=== PATIENT | female | born 1980 | race Caucasian/White ===

== ENCOUNTER → 2018-09-02 14:44 | Outpatient (CLI) | payer OTHER, SELFPAY ==
--- NOTE | 2018-09-02 | DI.US.S_ITS ---
PROCEDURE: US PELVIC LIMITED INDICATIONS: ROUTINE INTRAUTERINE CONTRACEPTIVE DEVICE CHECK TECHNIQUE: Real-time transabdominal scanning was performed of the pelvic organs, with image documentation. COMPARISON: [facility], US, OB COMPLETE 14WKS OR MORE, 05/08/2014, 13:05. FINDINGS: Uterus: Uterus is normal in size at some point a 3.9 x 4.5 cm. Endometrium measures 4 mm in combined thickness. Intrauterine device is noted in appropriate position. There is a 9 x 7 x 10 mm focus of heteroechogenicity within the mid posterior subserosal region. Ovaries: Right ovary measures 34 x 19 x 16 mm. Left ovary measures 31 x 19 x 15 mm. Other: No free pelvic fluid. Limited scanning through the kidneys shows no hydronephrosis. IMPRESSION: 1. Intrauterine device is in appropriate position. 2. Small uterine fibroid. Dictated by: Lyric Castillo M.D. on 09/02/2018 at 20:06 Approved by: Lyric Castillo M.D. on 09/02/2018 at 20:08
== END ==
PROVIDERS: PCP Family Medicine; Visit Provider Naturopath
DX: Z30.431 Encounter for routine checking of intrauterine contraceptive device (principal); D25.2 Subserosal leiomyoma of uterus
CPT/HCPCS: 76857

== ENCOUNTER → 2023-01-01 08:27 | Outpatient (CLI) | payer OTHER, SELFPAY ==
[2023-01-01 09:47] LABS: Hematocrit 37.5 % (36-46); Hemoglobin 12.7 g/dL (12.0-16.0); Mean Corpuscular Hemoglobin 30.6 PG (26-34); Mean Corpuscular Volume 89.9 fL (80-100); Platelet Count 202 X10^3/uL (150-400); Red Blood Cell Count 4.17 X10^6/uL (4.0-5.2); Red Cell Distribution Width 12.4 % (11.6-14.8); White Blood Cell Count 4.5 X10^3/uL (4.5-11.0)
[2023-01-01 10:13] LABS: Alanine Aminotransferase 22 IU/L (<35); Albumin 4.2 g/dL (3.5-5.0); Albumin Globulin Ratio 1.3 (1.0-2.8); Alkaline Phosphatase 49 U/L (38-126); Aspartate Aminotransferase 23 IU/L (14-36); BUN Creatinine Ratio 19.3 (6-22); Bilirubin Total 0.5 mg/dL (0.2-1.3); Blood Urea Nitrogen 17 mg/dL (7-17); Carbon Dioxide 26 mmol/L (22-32); Chloride 104 mmol/L (98-107); Cholesterol 178 mg/dL (140-199); Estimated Glomerular Filt Rate > 60 mL/min (>60); Globulin 3.2 g/dL (1.7-4.1); Glucose 89 mg/dL (70-100); HDL Cholesterol 56 mg/dL (40-60); HEMOLYSIS < 15 (0-50); LDL Cholesterol Calculated 108 mg/dL (<100); Potassium 4.8 mmol/L (3.4-5.1); Sodium 138 mmol/L (137-145); Total Protein 7.4 g/dL (6.3-8.2); Triglycerides 70 mg/dL (35-150)
[2023-01-01 10:40] LABS: Thyroid Stimulating Hormone 0.596 uIU/mL (0.47-4.68)
[2023-01-03 07:40] LABS: Insulin Level Total 8.1 uIU/mL (2.6-24.9)
== END ==
PROVIDERS: Referring Provider Naturopath; Visit Provider Naturopath
DX: R63.5 Abnormal weight gain (principal); Z13.220 Encounter for screening for lipoid disorders; R53.83 Other fatigue; Z13.1 Encounter for screening for diabetes mellitus
CPT/HCPCS: 36415; 80053; 80061; 83525; 84443; 85027

== ENCOUNTER → 2024-09-15 16:13 | Outpatient (CLI) | payer OTHER, SELFPAY ==
--- NOTE | 2024-09-15 16:14 | DI.MG.S_ITS ---
MM screening mammo BI: 09/15/2024. BI-RADS: 0 CLINICAL: 43-year old female for bilateral screening mammogram. Tyrer-Cuzick lifetime risk of 10.5%. No personal or first-degree family history of breast cancer. PRIOR EXAMS No prior examinations available. MAMMOGRAPHY TECHNIQUE: 2D and 3D (tomosynthesis) digital mammographic views obtained, with additional images as needed for full coverage. Current study was also evaluated with a Computer Aided Detection (CAD) system. DENSITY B. There are scattered areas of fibroglandular density. MAMMOGRAPHY FINDINGS Right: Upper Outer at 10:30, Middle depth: There is a focal asymmetry present. Additional imaging evaluation needed. Right: Central, Posterior depth: There are multiple focal asymmetries present. Additional imaging evaluation needed. Right: Lower Inner at 4:00, Posterior depth: Additional imaging evaluation needed. Left: No suspicious mass, asymmetry, microcalcification, or other abnormality seen. IMPRESSION: Right (Asymmetry): Upper Outer at 10:30, Middle depth * Incomplete - Needs additional imaging evaluation. Right (Asymmetry): Central, Posterior depth * Incomplete - Needs additional imaging evaluation. Right: Lower Inner at 4:00, Posterior depth * Incomplete - Needs additional imaging evaluation. Left * No evidence of malignancy. RECOMMENDATIONS Right * Further evaluation with diagnostic mammography and diagnostic ultrasound. OVERALL ASSESSMENT CATEGORY BI-RADS-0: Incomplete - Need Additional Imaging Evaluation. ELECTRONICALLY SIGNED: Regino Nguyen M.D. on 09/16/2024 at 08:16:22 AM PT Interpreting Station ID: [id number]
== END ==
PROVIDERS: PCP Naturopath; Referring Provider Naturopath; Visit Provider Naturopath
DX: Z12.31 Encounter for screening mammogram for malignant neoplasm of breast (principal)
CPT/HCPCS: 77063; 77067

== ENCOUNTER → 2024-12-29 09:35 | Outpatient (CLI) | payer OTHER, SELFPAY ==
--- NOTE | 2024-12-29 09:36 | DI.US.S_ITS ---
MM diagnostic mammo unilat RT, US breast RT limited: 12/29/2024 BI-RADS: 2 CLINICAL: 44-year old female for right diagnostic mammogram and right diagnostic breast ultrasound. Tyrer-Cuzick lifetime risk of 10.5%. No personal or first-degree family history of breast cancer. PRIOR EXAMS Mammogram(s): 09/15/2024. MAMMOGRAPHY TECHNIQUE: 2D and 3D (tomosynthesis) digital mammographic views obtained, with additional images as needed for full coverage. Current study was also evaluated with a Computer Aided Detection (CAD) system. ULTRASOUND TECHNIQUE TARGETED Right Breast Ultrasound: Real-time ultrasound exam was performed focused to area of clinical and/or imaging concern. Real-time allen scale and color doppler imaging of the area of clinical interest was performed with image documentation. DENSITY Right: B. There are scattered areas of fibroglandular density. MAMMOGRAPHY FINDINGS Right: Upper Outer at 10:30: There is an asymmetry seen only on one view that has decreased in size. Right: Central: Resembles a lymph node. There is a focal asymmetry present. Right: Lower Inner at 4:00, Posterior depth: There is a focal asymmetry present. ULTRASOUND FINDINGS Right: Upper Outer at 10:30, 7 cm from nipple, measuring 0.7 x 0.5 x 0.5 cm: There are clustered microcysts. Right: Upper at 12:00, 8 cm from nipple, measuring 0.4 x 0.2 x 0.6 cm. Previous report: Central: There are clustered microcysts. Right: Inner at 3:00, 7 cm from nipple, measuring 0.5 x 0.5 x 0.4 cm. Previous report: Lower Inner at 4:00: There is a simple anechoic cyst. Doppler shows no vascularity. IMPRESSION: Right * No evidence of malignancy with benign findings. RECOMMENDATIONS Bilateral * Annual screening mammography. OVERALL ASSESSMENT CATEGORY BI-RADS-2: Benign. The [employer] recommends annual screening mammography beginning at age 40 for women with average risk of breast cancer. ELECTRONICALLY SIGNED: Jerry Cam M.D. on 12/29/2024 at 12:53:42 PM PT Interpreting Station ID: [id number]
== END ==
LOC: MAMMO 09:35
PROVIDERS: PCP Naturopath; Referring Provider Naturopath; Visit Provider Naturopath
DX: R92.8 Other abnormal and inconclusive findings on diagnostic imaging of breast (principal); R92.321 Mammographic fibroglandular density, right breast; N60.01 Solitary cyst of right breast
CPT/HCPCS: 76642; 77065; G0279